=== PATIENT | female | born 1975 | race Caucasian/White ===

== ENCOUNTER 2023-05-20 06:17 | Emergency (ER) | payer MEDICAID, SELFPAY ==
--- NOTE | 2023-05-20 06:18 | XRR_ITS ---
PROCEDURE INFORMATION: Exam: XR Left Knee Exam date and time: 05/20/2023 6:57 AM Age: 47 years old Clinical indication: Pain; Knee; Left; Additional info: Trauma TECHNIQUE: Imaging protocol: Radiologic exam of the left knee. Views: 3 views. COMPARISON: No relevant prior studies available. FINDINGS: Bones/joints: No acute fracture or malalignment. Joint spaces are maintained. No joint effusion. Soft tissues: Normal. XR/XR knee LT 3V* [id number] IMPRESSION: No acute fracture or malalignment.
[2023-05-20 06:26] VITALS: BMI 27.4
[2023-05-20 06:30] VITALS: BP 110/72; PULSE 54; RESP 16; TEMP 36.8; O2SAT 100
--- NOTE | 2023-05-20 06:35 | W.ED.EXTPRO ---
HPI - Extremity Problem General: Chief complaint: Extremity Injury, Lower Stated complaint: left knee injury Time Seen by Provider: 05/20/23 06:18 Source: patient Mode of arrival: other (In the custody of law enforcement) History of Present Illness: 47-year-old female who fell 1 month ago complaining of left knee pain. Patient arrives emergency room in the custody of law enforcement she is currently incarcerated. 1 month ago she fell she states it is still bothering her so she requested to be seen no further injury since the original fall. Patient has been ambulating since. She states she takes trazodone as a muscle relaxer for the knee. Has not been taking anything else recently. MD Complaint: joint pain Onset (ago): month(s) (1) Location: left and knee Radiation: none Relieving factors: nothing Exacerbating factors: weight bearing and walking Associated symptoms: Deny chest pain, fever(s) or rash Review of Systems Const: Denies: fever(s) or chills Card: Denies: chest pain Resp: Denies: dyspnea, productive cough or non-productive cough GI: Denies: abdominal pain, nausea or vomiting : Denies: flank pain, dysuria, urinary frequency or urinary urgency Musc: Reports: joint pain; Denies: joint swelling Skin/Breast: Denies: rash or pruritus Physical Exam Const: GENERAL APPEARANCE: cooperative and comfortable ORIENTATION/CONSCIOUSNESS: Yes awake, Yes oriented to person, Yes oriented to place and Yes oriented to time HENMT: COMMON NORMALS: normocephalic, atraumatic and hearing grossly normal bilaterally HEAD & SCALP: normocephalic and atraumatic Resp: COMMON NORMALS: normal respiratory effort, No retractions, No use of accessory muscles and clear to auscultation bilaterally AUSCULTATION: clear to auscultation bilaterally Cardio: COMMON NORMALS: regular rate, regular rhythm and No murmurs present (Cardio) RATE: regular rate RHYTHM: regular rhythm GI: COMMON NORMALS: Soft to palpation and No hepatosplenomegaly present AUSCULTATION: Yes normoactive bowel sounds PALPATION: Yes Soft to palpation, No Tenderness to palpation present (GI), No Guarding due to palpation present (GI) and Yes No hepatosplenomegaly present Extremity: COMMON NORMALS: normal to inspection, capillary refill normal, no clubbing, cyanosis or edema, no calf tenderness and no pedal edema Neuro: SENSORIUM/ORIENTATION: Yes oriented to person, Yes oriented to place and Yes oriented to time Skin: COMMON NORMALS: no rashes or lesions noted GENERAL SKIN EXAM: no rashes or lesions noted Course Vital Signs: Vital signs: Vital Signs Temperature 98.2 F 05/20/23 06:30 Pulse Rate 54 L 05/20/23 06:30 Respiratory Rate 16 05/20/23 06:30 Blood Pressure 110/72 05/20/23 06:30 Pulse Oximetry 100 05/20/23 06:30 MDM - Extremity (Nontraumatic) Medical Decision Making No fracture on x-ray no soft tissue injury noted on exam no internal instability no laxity on testing. There is no joint effusion. Start patient on diclofenac and follow-up with primary care or Ortho if not improving Medical Records I reviewed the patient's medical records. Lab Data I reviewed the patient's lab results. (X-rays) Radiology Impressions Knee X-Ray 05/20/23 06:18 IMPRESSION: No acute fracture or malalignment. Discharge Plan Discharge Patient Disposition: Home Clinical Impression: Knee pain, left Condition: Stable Prescriptions: New diclofenac sodium 75 mg tablet,delayed release (DR/EC) 75 mg PO Q12H PRN (Reason: pain) Qty: 60 0RF Discharge Orders: Discharge ED (Routine); Ordered 05/20/23 Ordered By: Ross Junior Discharge Diet: Usual diet Discharge Activity: Increase activity as tolerated Patient Instructions: Opioid Safety, Pain Management Activity Restrictions/Additional Instructions: You are seen today for chronic left knee pain that has been going on for 1 month. X-rays did not show any acute fracture. We will start you on diclofenac 1 twice a day as needed. Case management will make arrangements for you to follow-up with orthopedics Coding Level of Care Code ED Contract Recruiter for Shaista Jennings
--- NOTE | 2023-05-20 08:43 | DCPLANNER ---
Addendum entered by Izzy Concepcion 06/01/23 13:00: Patient has a follow up appointment scheduled for Saturday, June 17, 2023 at 11:00 with Christ Elizabeth at ortho. Original Note: manager of corporate had message to schedule a follow up appointment for patient with ortho. manager of corporate sent patients information to the front office staff at ortho. Patients information will be printed and reviewed. Clinic will call patient with appointment information.
== END 2023-05-20 07:33 | disposition home or self-care (01) ==
PROVIDERS: Emergency Provider Family Medicine
DX: M25.562 Pain in left knee (principal)
CPT/HCPCS: 73562; 99283